=== PATIENT | male | born 1985 | race African-American/Black ===

== ENCOUNTER 2016-10-05 17:56 | Emergency (ER) | payer SELFPAY ==
[2016-10-05] MEDS ORDERED: Lidocaine 1% 5ml(IM or SUTURE)(PAIN CLINIC) ONE (19:10)
[2016-10-05] MEDS ORDERED: Lidocaine 1% 5ml(IM or SUTURE)(PAIN CLINIC) IJ ONE (19:30)
--- NOTE | 2016-10-05 20:01 | ED Physician Documentation ---
General Adult - HISTORIAN Historian: patient - HPI Stated Complaint: lac to ring finger left hand Chief Complaint: General Adult Onset: hours Timing: still present Severity: moderate Further Comments: yes (Pt is a 31 yo male who sustained superficial lacerations to his L hand when he tapped a window and the shattered. Tetanus is utd.) - ROS CONST: no problems EYES/ENT: none CVS/RESP: none GI/: none MS/SKIN/LYMPH: other (L hand lacerations) - PAST HX Past History: none Allergies/Adverse Reactions: Allergies Allergy/AdvReac Type Severity Reaction Status Date / Time No Known Allergies Allergy Verified 10/05/16 18:33 Home Medications: Ambulatory Orders Medication Instructions Recorded NK [NK] 10/05/16 - SOCIAL HX Smoking History: cigarettes - FAMILY HX Family History: No - REVIEWED ASSESSMENTS Nursing Assessment Reviewed: Yes Vitals Reviewed: Yes Procedures Wound Location: upper extremity (2.5 cm superficial laceration over dosrum of L ring finger, 1st phalanx.) Wound's Depth, Shape: superficial Wound Explored: clean Betadine Prep?: Yes Anesthesia: 1% Lidocaine Wound Debrided: minimal Wound Repaired With: sutures Suture Size/Type: 4:0, nylon Number of Sutures: 4 Layer Closure?: No Sterile Dressing Applied?: Yes Splint Applied?: No Progress - Progress Progress: one suture place to small laceration in the web space of L hand between the 4th & 5th digits. Apply topical antibiotic such as Neosporin, Bacitracin, or Triple Antibiotic to sutured area twice daily for 5 days. Follow up with primary care provider in 5 to 7 days for suture removal. Rx Tylenol #3 (with codeine). Take one or two every 4 to 6 hrs as needed for pain. ED Results Lab/Radiology - Orders Orders: ED Orders Category Date Time Status Lidocaine 1% 5ml(IM or SUTURE) [Xylocaine] Med 10/05/16 19:10 Discontinued 50 mg .ROUTE .STK-MED ONE General Adult Physical Exam - PHYSICAL EXAM GENERAL APPEARANCE: mild distress EENT: eye inspection normal NECK: normal inspection, supple RESPIRATORY: no resp distress BACK: normal inspection SKIN: other (2.5 cm superficial laceration over dosrum of L ring finger, 1st phalanx.) EXTREMITIES: other (2.5 cm superficial laceration over dosrum of L ring finger, 1st phalanx.) NEURO: oriented X3, motor nml, sensation nml Discharge Clincal Impression: Finger laceration Qualifiers: Encounter type: initial encounter Finger: ring finger Damage to nail status: without damage Foreign body presence: without foreign body Laterality: left Qualified Code(s): S61.215A - Laceration without foreign body of left ring finger without damage to nail, initial encounter Referrals: Primary Doctor,No [Primary Care Provider] - 2 Days Home Medications: Ambulatory Orders NK [NK] 10/05/16 Condition: Good Disposition: 01 HOME, SELF-CARE Decision to Admit: NO Decision Time: 20:01
[2016-10-05 20:03] VITALS: BP 132/68
== END 2016-10-05 19:58 | disposition home or self-care (01) ==
LOC: ED 17:56
DX: S61.215A Laceration without foreign body of left ring finger without damage to nail, initial encounter (principal); X58.XXXA Exposure to other specified factors, initial encounter; Y93.9 Activity, unspecified; Y99.9 Unspecified external cause status
CPT/HCPCS: 12001; 99283

== ENCOUNTER 2017-10-22 13:54 | Emergency (ER) | payer SELFPAY ==
--- NOTE | 2017-10-22 14:28 | ED Physician Documentation ---
General Adult - HISTORIAN Historian: patient - HPI Stated Complaint: burning on urination Chief Complaint: General Adult Onset: days ago (3) Timing: still present Severity: moderate Further Comments: yes (Pt is a 32 yo male with dysuria and mucous discharge x 4 days. Pt had unprotected sex a few days prior to sx. No fever/chills, n/v.) - ROS CONST: no problems EYES/ENT: none CVS/RESP: none GI/: other (dysuria, discharge) MS/SKIN/LYMPH: none - PAST HX Past History: none Allergies/Adverse Reactions: Allergies Allergy/AdvReac Type Severity Reaction Status Date / Time No Known Allergies Allergy Verified 10/22/17 14:22 Home Medications: Ambulatory Orders Medication Instructions Recorded NK [NK] 10/05/16 - SOCIAL HX Smoking History: cigarettes - FAMILY HX Family History: No - VITAL SIGNS Vital Signs: Vital Signs Temp Pulse Resp BP Pulse Ox 98.4 F 103 H 18 151/86 98 10/22/17 14:06 10/22/17 14:06 10/22/17 14:06 10/22/17 14:06 10/22/17 14:06 - REVIEWED ASSESSMENTS Nursing Assessment Reviewed: Yes Vitals Reviewed: Yes Progress - Progress Progress: Rocephin 250 mg IM Azithromycin 1000 mg po u/a with wbc GC/Chylamydia pending pt advised re: partner tx and re: reportable dz. General Adult Physical Exam - PHYSICAL EXAM GENERAL APPEARANCE: mild distress EENT: pharynx normal NECK: normal inspection, supple RESPIRATORY: no resp distress, chest non-tender, breath sounds normal CVS: reg rate & rhythm, heart sounds normal BACK: normal inspection, no CVA tenderness SKIN: warm/dry, normal color EXTREMITIES: non-tender, normal range of motion, no evidence of injury NEURO: oriented X3, motor nml, sensation nml Discharge Clincal Impression: STD (male), Probable GC/Chlamydia Referrals: Primary Doctor,No [Primary Care Provider] - Condition: Good Disposition: 01 HOME, SELF-CARE Decision to Admit: NO Decision Time: 14:37
[2017-10-22] MEDS ORDERED: AZITHROMYCIN 250 MG TABLET PO ONE (14:31)
[2017-10-22 14:46] VITALS: BP 147/78
[2017-10-23 07:09] LABS: APPEARANCE,URINE CLOUDY (CLEAR); COLOR,URINE YELLOW (YELLOW); UROBILINOGEN URINE 0.2 Eu (0.2-1.0)
[2017-10-23 07:10] LABS: OCCULT BLOOD,URINE TRACE-INTACT (NEGATIVE)
== END 2017-10-22 14:45 | disposition home or self-care (01) ==
LOC: ED 13:54
DX: A64 Unspecified sexually transmitted disease (principal)
CPT/HCPCS: 81002; 87086; 87491; 87591; J0696; 96372; 99283